=== PATIENT | male | born 1960 | race Caucasian/White ===

== ENCOUNTER 2024-06-09 11:35 | Emergency (ER) | payer OTHER ==
[2024-06-09] MEDS ORDERED: NA CHLORIDE 0.9% 500 ML ONE ×2 (12:02→16:08)
[2024-06-09 12:04] LABS: Absolute Neutrophil 5.6 K/uL (1.8-8.0); Basophils % 0.3 % (0-1.3); Eosinophils % 0.1 % (0-4.4); Hematocrit 53.2 % (39.6-49.0); Lymphocytes % 31.2 % (15.3-44.8); MCHC 33.9 g/dL (32.0-36.0); MCV 88.4 fL (80-100); MPV 7.8 fL (7.6-11.3); Monocytes % 10.2 % (3.3-12.3); Neutrophils % 58.2 % (41.7-73.7); Nucleated Red Blood Cells % 0.1 % (0-0); Platelets 209 thou/uL (152-406); RBC Red Blood Cell Count 6.02 M/uL (4.33-5.43); Red Cell Distribution Width 14.5 % (12.1-15.2)
[2024-06-09 12:07] LABS: PTT, Activated Partial Thromb 28.4 SECONDS (24.3-36.9); Protime INR 0.89
[2024-06-09 12:28] LABS: ALT/SGPT 113 U/L (16-61); AST/SGOT 87 U/L (15-37); Alkaline Phosphatase 50 U/L (45-117); Anion Gap 19.7 mEq/L (5.0-15.0); BUN Blood Urea Nitrogen 58 mg/dL (7-18); Bicarbonate 26 mEq/L (21-32); Bilirubin Direct 0.3 mg/dL (0-0.2); Bilirubin Indirect, Calculated 0.7 mg/dL (0.2-0.8); Globulin 3.9 g/dL (2.3-3.5); Glomerular Filtration Rate 36 ml/min (=/>90); Glucose Level 135 mg/dL (74-106); Potassium 2.7 mEq/L (3.5-5.1); Protein, Total 7.9 g/dL (6.4-8.2); Sodium Level 129 mEq/L (136-145)
[2024-06-09] MEDS ORDERED: KCL 20 MEQ/100 mL IVPB 100 ML IV ONE (13:35)
[2024-06-09] MEDS ORDERED: NA CHLORIDE 0.9% 1,000 ML ONE (13:36)
[2024-06-09 13:42] LABS: Barbiturates NEGATIVE (NEGATIVE); Benzodiazepines NEGATIVE (NEGATIVE); Cocaine NEGATIVE (NEGATIVE); METHAMPHETAM NEGATIVE (NEGATIVE); Methadone NEGATIVE (NEGATIVE); Opiates NEGATIVE (NEGATIVE); Phencyclidine NEGATIVE (NEGATIVE); THC Cannibis NEGATIVE (NEGATIVE)
[2024-06-09 15:55] LABS: Anion Gap 16.2 mEq/L (5.0-15.0); Potassium 3.2 mEq/L (3.5-5.1)
[2024-06-09] MEDS ORDERED: POTASSIUM CL SA 10 MEQ TAB PO ONE (16:08)
--- NOTE | 2024-06-09 16:37 | EDPHYS ---
Physician Documentation [facility] Name: Chadwick Fan Age: 63 yrs Sex: Male : 1960 Arrival Date: 06/09/2024 Time: 11:35 Bed 16 Private MD: ED Physician Jonel Kyle HPI: 06/09 13:03 This 63 yrs old Male presents to ER via EMS with complaints of Suicidal Ideation. rn 13:03 The patient presents to the emergency department with suicide ideation. Onset: The rn symptoms/episode began/occurred 3 day(s) ago. Associated signs and symptoms: Pertinent positives; anxiety, depression, Pertinent negatives: fever, hallucinations, homicidal ideation. Severity of symptoms: At their worst the symptoms were moderate in the emergency department the symptoms are unchanged. The patient has not experienced similar symptoms in the past. Patient reports suicidal ideations since a few days ago. Has been drinking heavily since onset of suicidal ideations to self medicate. Denies attempt or overdose. Has never had a previous attempt to harm himself. Reports drinking heavily today as well. No homicidal ideations. No specific plan.. Historical: - Allergies: 11:41 No Known Allergies; cm10 - PMHx: 11:41 Hypertensive disorder; Depressive disorder; Anxiety; cm10 - Immunization history:: Adult Immunizations up to date. - Infectious Disease History:: Denies. - Family history:: not pertinent. - Social history:: Smoking status: Patient denies any tobacco usage or history of. - Hospitalizations: : No recent hospitalization is reported. ROS: 13:03 Constitutional: Negative for fever, chills, and weight loss, Cardiovascular: Negative rn for chest pain, palpitations, and edema, Respiratory: Negative for shortness of breath, cough, wheezing, and pleuritic chest pain, Abdomen/GI: Negative for abdominal pain, nausea, vomiting, diarrhea, and constipation, MS/Extremity: Negative for injury and deformity, Skin: Negative for injury, rash, and discoloration, Neuro: Negative for headache, weakness, numbness, tingling, and seizure, Psych: Positive for depression/anxiety/suicidal ideation Exam: 13:03 Constitutional: This is a well developed, well nourished patient who is awake, alert, rn disheveled, emotional and tearful Head/Face: Normocephalic, atraumatic. Cardiovascular: Regular rate and rhythm. No pulse deficits. Respiratory: Mild hyperventilation as he cries Neuro: Awake and alert, GCS 15 13:14 ECG was reviewed by the Attending Physician. rn Vital Signs: 11:56 BP 106 / 80; Pulse 85; Resp 17; Temp 97.6(TE); Pulse Ox 98% on R/A; bc6 14:22 BP 110 / 76; Pulse 83; Resp 18; Pulse Ox 100% on R/A; mb9 21:23 BP 114 / 68; Pulse 160; Pulse Ox 99% ; br2 06/10 04:45 BP 140 / 78; Pulse 97; Resp 18; Pulse Ox 97% on R/A; lg3 MDM: 06/09 11:36 Patient medically screened. rn 16:32 Differential diagnosis: depression, suicidal ideation. Data reviewed: vital signs, rn nurses notes, lab test result(s), and as a result, I will admit patient. Consideration of Admission/Observation Patient was admitted/placed on observation. Escalation of care including admission/observation considered. Counseling: I had a detailed discussion with the patient and/or guardian regarding the historical points, exam findings, and any diagnostic results supporting the discharge/admit diagnosis, lab results, the need for outpatient follow up, to return to the emergency department if symptoms worsen or persist or if there are any questions or concerns that arise at home. Response to treatment: the patient's symptoms have mildly improved after treatment, and as a result, I will admit patient. 16:32 ED course: Labs improved with IV hydration. Likely acidotic due to alcoholic binge. rn Normal vital signs. Patient is voluntary and agrees for transfer to psychiatric facility given his suicidal ideations.. 06/10 04:31 ED course: Patient reports he is no longer suicidal. He is stable for discharge home. sp4 Patient was Strongly advised to abstain from alcohol and join alcoholic Anonymous club. . 06/09 11:36 Order name: Acetaminophen; Complete Time: 13:28 rn 06/09 11:36 Order name: Basic Metabolic Panel; Complete Time: 13:28 rn 06/09 11:36 Order name: CBC with Diff; Complete Time: 13:28 rn 06/09 11:36 Order name: ETOH Level; Complete Time: 13:28 rn 06/09 11:36 Order name: Hepatic Function; Complete Time: 13:28 rn 06/09 11:36 Order name: PT-INR; Complete Time: 13:28 rn 06/09 11:36 Order name: Ptt, Activated; Complete Time: 13:28 rn 06/09 11:36 Order name: Salicylate; Complete Time: 13:28 rn 06/09 11:36 Order name: Urine Drug Screen; Complete Time: 13:46 rn 06/09 14:57 Order name: BMP: repeat when fluid boluses complete; Complete Time: 15:58 rn 06/09 18:04 Order name: ETOH Level; Complete Time: 18:54 bd 06/10 02:25 Order name: Alcohol Level; Complete Time: 04:24 sp4 06/10 02:25 Order name: CMP; Complete Time: 04:24 sp4 06/09 11:36 Order name: EKG; Complete Time: 11:37 rn 06/09 11:36 Order name: EKG - Nurse/Tech; Complete Time: 12:07 rn 06/09 11:36 Order name: IV Saline Lock; Complete Time: 12:07 rn 06/09 11:36 Order name: Labs collected and sent; Complete Time: 12:07 rn 06/09 11:36 Order name: Suicide Precautions; Complete Time: 12:07 rn 06/09 11:36 Order name: Suicide Screening ([place]); Complete Time: 12:22 rn EC/09 13:14 Rhythm is regular. Left axis deviation noted. QRS is positive in lead I and negative in rn lead aVF. QRS interval is normal. QT interval is normal. No Q waves. T waves are Normal. No ST changes noted. Clinical impression: NSR w/ Non-specific ST/T Changes. Interpreted by me. Reviewed by me. Administered Medications: 12:22 Drug: NS 0.9% IV 500 ml IV at bolus once Route: IV; Rate: bolus; Site: left antecubital;mb9 12:45 Follow up: Response: No adverse reaction; IV Status: Completed infusion mb9 13:43 Drug: NS 0.9% IV 1000 ml IV at 1000 ml once Route: IV; Rate: 1000 ml; Site: left mb9 antecubital; 15:44 Follow up: Response: No adverse reaction; IV Status: Completed infusion mb9 13:43 Drug: Potassium Chloride IV 20 mEq IV at calculated rate once; administer over 1-2 mb9 hours Route: IV; Rate: calculated rate; Site: left antecubital; 15:43 Follow up: Response: No adverse reaction; IV Status: Completed infusion mb9 16:15 Drug: Potassium Chloride PO 40 mEq PO once Route: PO; mb9 17:11 Follow up: Response: No adverse reaction mb9 16:15 Drug: NS 0.9% IV 500 ml IV at bolus once Route: IV; Rate: bolus; Site: left antecubital;mb9 17:11 Follow up: Response: No adverse reaction; IV Status: Completed infusion mb9 16:30 Drug: Calcium Carbonate PO 500 mg PO once; administer after food or a meal Route: PO; ll1 17:11 Follow up: Response: No adverse reaction mb9 19:42 CANCELLED (Physician Discretion): diazepam5 mg PO once ec2 19:54 Drug: Diazepam IVP 5 mg IVP once Route: IVP; Site: left antecubital; br2 21:00 Follow up: Response: No adverse reaction; RASS: Restless (+1) br2 21:58 Drug: LORazepam PO 2 mg PO once Route: PO; br2 23:00 Follow up: Response: No adverse reaction; Anxiety decreased br2 21:58 Drug: Thiamine IV 100 mg IV at bolus once Route: IV; Rate: bolus; Site: left br2 antecubital; 06/10 05:04 Follow up: Response: No adverse reaction; IV Status: Completed infusion; IV Intake: 1ml br2 06/09 21:58 Drug: D5-NS IV 1000 ml IV at 125 ml/hr continuous Route: IV; Rate: 125 ml/hr; Site: br2 left antecubital; 06/10 05:21 Follow up: IV Status: Order to discontinue infusion; IV Intake: 700ml br2 05:02 Drug: LORazepam PO 1 mg PO once Route: PO; br2 05:21 Follow up: Response: No adverse reaction br2 Disposition Summary: 06/10/24 04:35 Discharge Ordered Notes: Location: Home sp4 Problem: new(06/10/24 04:35) sp4 Symptoms: have improved(06/10/24 04:35) sp4 Condition: Stable(06/10/24 04:35) sp4 Diagnosis - Alcohol abuse with intoxication sp4 - Acute alcoholic hepatitis, acute hyponatremia- resolved sp4 Followup: sp4 - With: Savage Aj MD - When: 7 - 10 days - Reason: Recheck today's complaints Discharge Instructions: - Discharge Summary Sheet sp4 - Alcohol Intoxication sp4 Forms: - Patient Portal Instructions sp4 Prescriptions: - chlordiazepoxide HCl 25 mg Oral capsule - take 1 capsule ORAL route 2 times per day Take One tab twice daily for 5 days sp4 then One tab once daily for 5 days; 15 capsule; Refills: 0, Product Selection Permitted Signatures: Dispatcher [employer] EDMS Martin Montes MD MD rn Lewis, Lynsay RN RN ll1 Sarah, Shahla Tapia, RN RN mb9 Jonel Kyle MD MD sp4 Marguerite Pizano RN RN cm10 Jose Alexander MD MD ec2 Dora Anglin, RN RN br2 Corrections: (The following items were deleted from the chart) 06/09 19:42 19:40 Diazepam PO 5 mg PO once ordered. ec2 ec2 06/10 04:32 06/09 16:37 DrCarrington rn sp4 06/10 04:32 06/09 16:37 Psych Facility rn sp4 06/10 04:32 06/09 16:37 Higher level of care rn sp4 06/10 04:06/09 16:37 Stable rn sp4 06/10 04:32 06/09 16:37 new rn sp4 06/10 04:32 06/09 16:37 have improved rn sp4 06/10 04:32 06/09 16:37 Suicidal ideations rn sp4 06/10 04:32 06/09 16:37 Alcohol use, unspecified with intoxication, uncomplicated rn sp4 06/10 04:32 06/09 16:37 Dehydration rn sp4
--- NOTE | 2024-06-09 16:37 | ER ---
Nurse's Notes [facility] Name: Chadwick Fan Age: 63 yrs Sex: Male : 1960 Arrival Date: 06/09/2024 Time: 11:35 Bed 16 Private MD: Diagnosis: Alcohol abuse with intoxication;Acute alcoholic hepatitis, acute hyponatremia- resolved Presentation: 06/09 11:39 Chief complaint: EMS states: Called to patient's home due to patient drinking alcohol cm10 and having suicidal ideation since Friday. Pt has been drinking alcohol since 07. Pt reports passing out. Pt very emotional due to not having family here. Pt does not have a plan. Pt has history of depression but has not been taking his medication as prescribed. Coronavirus screen: Client denies travel out of the [place] in the last 14 days. Ebola Screen: Patient denies travel to an Ebola-affected area in the 21 days before illness onset. Initial Sepsis Screen: Does the patient meet any 2 criteria? HR > 90 bpm. Does the patient have a suspected source of infection? No. Patient's initial sepsis screen is negative. Risk Assessment: Do you want to hurt yourself or someone else? Patient reports desire/thoughts of hurting themselves or someone else. Provider notified. 11:39 Method Of Arrival: EMS: [facility] cm10 11:39 Acuity: SUPA 2 cm10 12:20 Onset of symptoms was 2023. mb9 Historical: - Allergies: 11:41 No Known Allergies; cm10 - PMHx: 11:41 Hypertensive disorder; Depressive disorder; Anxiety; cm10 - Immunization history:: Adult Immunizations up to date. - Infectious Disease History:: Denies. - Family history:: not pertinent. - Social history:: Smoking status: Patient denies any tobacco usage or history of. - Hospitalizations: : No recent hospitalization is reported. Screenin:20 [facility] ED Fall Risk Assessment (Adult) History of falling in the last 3 months, mb9 including since admission No falls in past 3 months (0 pts) Confusion or Disorientation No (0 pts) Intoxicated or Sedated No (0 pts) Impaired Gait No (0 pts) Mobility Assist Device Used No (0 pt) Altered Elimination No (0 pt) Score/Fall Risk Level 0 - 2 = Low Risk. [facility] ED Fall Risk Assessment (Adult) Score/Fall Risk Level 0 - 2 = Low Risk Oriented to surroundings, Maintained a safe environment, Educated pt \\T\\ family on fall prevention, incl call for assistance when getting out of bed, Assessed \\T\\ reinforced patient's understanding of fall precautions, Provided non-skid footwear, Hourly rounding (assess needs \\T\\ fall precautionary measures) done. Abuse screen: Denies threats or abuse. Nutritional screening: No deficits noted. Tuberculosis screening: No symptoms or risk factors identified. Assessment: 11:35 General: Appears uncomfortable, Behavior is anxious, crying. Pain: Denies pain. Neuro: mb9 Level of Consciousness is awake, alert, obeys commands, Oriented to person, place, time, situation, Appropriate for age. Respiratory: Airway is patent Respiratory effort is even, unlabored, Respiratory pattern is regular, symmetrical, Breath sounds are clear bilaterally. 11:35 Cardiovascular: Patient's skin is warm and dry. GI: Abdomen is round non-distended. : mb9 No signs and/or symptoms were reported regarding the genitourinary system. EENT: No signs and/or symptoms were reported regarding the EENT system. Derm: Skin is pink, warm \\T\\ dry. Musculoskeletal: Range of motion: intact in all extremities. 12:35 Reassessment: Patient is alert, oriented x 3, equal unlabored respirations, skin mb9 warm/dry/pink. SI precautions in place. Sitter at bedside. 13:35 Reassessment: Patient is alert, oriented x 3, equal unlabored respirations, skin mb9 warm/dry/pink. SI precautions in place. Sitter and friend at bedside. 14:35 Reassessment: Patient appears in no apparent distress at this time. Patient is alert, mb9 oriented x 3, equal unlabored respirations, skin warm/dry/pink. SI precautions in place. Sitter at bedside. 15:35 Reassessment: Patient is alert, oriented x 3, equal unlabored respirations, skin mb9 warm/dry/pink. SI precautions in place. Sitter at bedside. 16:35 Reassessment: Patient is alert, oriented x 3, equal unlabored respirations, skin mb9 warm/dry/pink. SI precautions in place. Sitter at bedside. 17:35 Reassessment: Patient appears in no apparent distress at this time. Patient and/or mb9 family updated on plan of care and expected duration. Pain level reassessed. Patient is alert, oriented x 3, equal unlabored respirations, skin warm/dry/pink. Si precautions in place. Sitter at bedside. 18:35 Reassessment: Patient and/or family updated on plan of care and expected duration. Pain mb9 level reassessed. Patient is alert, oriented x 3, equal unlabored respirations, skin warm/dry/pink. SI precautions in place. SItter at bedside. 19:05 Reassessment: Patient and/or family updated on plan of care and expected duration. Pain br2 level reassessed. Patient is alert, oriented x 3, equal unlabored respirations, skin warm/dry/pink. PT UPDATED ON PLAN OF CARE. PT STATES HE IS FEELING "SHAKY" AND HASN'T BEEN ABLE TO SLEEP. STATES HE HAS BEEN FEELING DEPRESSED DUE TO LOOSING HIS MOTHER RECENTLY AND HER BIRTHDAY WAS THIS PAST FRIDAY. PT STATES HE JUST WANTS HELP WITH HIS DEPRESSION, DIDN'T REALLY WANT TO COMMIT SUICIDE. 21:23 Reassessment: Reassessment: PT STATES HE IS FEELING "SHAKY" AND ISN'T ABLE TO REST. DR solo PT IN PROCEDURE, NOTIFIED CHARGE NURSE PRINCE. 21:58 Reassessment: No changes from previously documented assessment. Patient and/or family br2 updated on plan of care and expected duration. Pain level reassessed. Patient is alert, oriented x 3, equal unlabored respirations, skin warm/dry/pink. 23:00 Reassessment: Patient and/or family updated on plan of care and expected duration. Pain br2 level reassessed. Patient is alert, oriented x 3, equal unlabored respirations, skin warm/dry/pink. Patient states symptoms have improved. resting in bed with eyes closed. 06/10 01:00 Reassessment: No changes from previously documented assessment. Patient and/or family br2 updated on plan of care and expected duration. Pain level reassessed. Patient is alert, oriented x 3, equal unlabored respirations, skin warm/dry/pink. resting with eyes closed. no signs of distress Patient states symptoms have improved. 03:00 Reassessment: No changes from previously documented assessment. Patient and/or family br2 updated on plan of care and expected duration. Pain level reassessed. Patient is alert, oriented x 3, equal unlabored respirations, skin warm/dry/pink. 05:26 Reassessment: PT WAITING FOR SOMEONE TO PICK HIM UP. br2 Psych: 06/09 19:00 [place] Suicide Severity Screening: In the past month, have you wished you were br2 or wished you could go to sleep and not wake up? Patient responds "No." "In the past month, have you actually had any thoughts of killing yourself?" Patient responds "no." "In your lifetime, have you ever done anything, started to do anything, or prepared to do anything to end your life?" Patient responds "no.". Subjective: Patient's mood is sad, Delusions are denied, Hallucinations are denied Having thoughts of. Objective: Patient is restless, Speech is normal. Interventions: Patient placed in hospital gown. Patient reassessed during use of restraints. Patient is physically safe. Safety Checks: Personal items have been removed. Door is open. No visitors are present at this time. Patient uses 1 bottle of liquor, daily. Last use was 1 days ago. Commitment: Patient will be a voluntary commitment. 06/10 05:00 [place] Suicide Severity Screening: In the past month, have you wished you were br2 or wished you could go to sleep and not wake up? Patient responds "No." "In the past month, have you actually had any thoughts of killing yourself?" Patient responds "no." "In your lifetime, have you ever done anything, started to do anything, or prepared to do anything to end your life?" Patient responds "no.". Subjective: Patient's mood is sad, Delusions are denied, Hallucinations are denied Having thoughts of. Objective: Patient is cooperative, Speech is normal, Affect is appropriate. Safety Checks: Door is open. Patient uses. Consultation: OUT PATIENT RESOURCES PROVIDED. Commitment: PATIENT WAITING FOR RIDE, FEELING MUCH BETTER. Vital Signs: 06/09 11:56 BP 106 / 80; Pulse 85; Resp 17; Temp 97.6(TE); Pulse Ox 98% on R/A; bc6 14:22 BP 110 / 76; Pulse 83; Resp 18; Pulse Ox 100% on R/A; mb9 21:23 BP 114 / 68; Pulse 160; Pulse Ox 99% ; br2 06/10 04:45 BP 140 / 78; Pulse 97; Resp 18; Pulse Ox 97% on R/A; lg3 ED Course: 06/09 11:36 Patient arrived in ED. rn 11:36 Martin Montes MD is Attending Physician. rn 11:41 Triage completed. cm10 11:41 Arm band placed on Patient placed in an exam room, on a stretcher. cm10 11:42 Patient has correct armband on for positive identification. Bed in low position. Call cm10 light in reach. 11:43 Safety Checks: Personal items have been removed. The door is open or patient has been cm10 placed in a hallway bed/chair. A family member and/or friend is present and encouraged to stay. Sitter present at this time. 11:50 Shahla Smith RN is Primary Nurse. mb9 11:55 Acetaminophen Sent. bc6 11:55 Basic Metabolic Panel Sent. bc6 11:55 CBC with Diff Sent. bc6 11:55 ETOH Level Sent. bc6 11:55 Hepatic Function Sent. bc6 11:55 PT-INR Sent. bc6 11:55 Ptt, Activated Sent. bc6 11:55 Salicylate Sent. bc6 11:55 Initial lab(s) drawn, by nd, sent to lab. Inserted saline lock: 20 gauge in left bc6 antecubital area, using aseptic technique. Blood collected. Flushed with 10 mL NS. 12:18 EKG done, by ED staff, reviewed by Martin Montes MD. mb9 12:20 No provider procedures requiring assistance completed. mb9 15:44 BMP: repeat when fluid boluses complete Sent. mb9 18:58 faxed chart to [facility]. bd 19:05 Report given to GOMEZ Malin. mb9 19:05 Report received from NICOLE. br2 21:43 Attending Physician role handed off by Martin Montes MD sp4 21:43 Jonel Kyle MD is Attending Physician. sp4 21:57 Diet: Soda Drink given. oe 06/10 04:33 Savage Aj MD is Referral Physician. sp4 04:36 gave pt numbers for mental health and crisis line. kmf 05:00 Provided Education on: Provided Education on: OUTPATIENT TREATMENT FACILITIES. br2 05:00 IV discontinued, intact, bleeding controlled, No redness/swelling at site. Pressure br2 dressing applied. Administered Medications: 06/09 12:22 Drug: NS 0.9% IV 500 ml IV at bolus once Route: IV; Rate: bolus; Site: left antecubital;mb9 12:45 Follow up: Response: No adverse reaction; IV Status: Completed infusion mb9 13:43 Drug: NS 0.9% IV 1000 ml IV at 1000 ml once Route: IV; Rate: 1000 ml; Site: left mb9 antecubital; 15:44 Follow up: Response: No adverse reaction; IV Status: Completed infusion mb9 13:43 Drug: Potassium Chloride IV 20 mEq IV at calculated rate once; administer over 1-2 mb9 hours Route: IV; Rate: calculated rate; Site: left antecubital; 15:43 Follow up: Response: No adverse reaction; IV Status: Completed infusion mb9 16:15 Drug: Potassium Chloride PO 40 mEq PO once Route: PO; mb9 17:11 Follow up: Response: No adverse reaction mb9 16:15 Drug: NS 0.9% IV 500 ml IV at bolus once Route: IV; Rate: bolus; Site: left antecubital;mb9 17:11 Follow up: Response: No adverse reaction; IV Status: Completed infusion mb9 16:30 Drug: Calcium Carbonate PO 500 mg PO once; administer after food or a meal Route: PO; ll1 17:11 Follow up: Response: No adverse reaction mb9 19:42 CANCELLED (Physician Discretion): diazepam5 mg PO once ec2 19:54 Drug: Diazepam IVP 5 mg IVP once Route: IVP; Site: left antecubital; br2 21:00 Follow up: Response: No adverse reaction; RASS: Restless (+1) br2 21:58 Drug: LORazepam PO 2 mg PO once Route: PO; br2 23:00 Follow up: Response: No adverse reaction; Anxiety decreased br2 21:58 Drug: Thiamine IV 100 mg IV at bolus once Route: IV; Rate: bolus; Site: left br2 antecubital; 06/10 05:04 Follow up: Response: No adverse reaction; IV Status: Completed infusion; IV Intake: 1ml br2 06/09 21:58 Drug: D5-NS IV 1000 ml IV at 125 ml/hr continuous Route: IV; Rate: 125 ml/hr; Site: br2 left antecubital; 06/10 05:21 Follow up: IV Status: Order to discontinue infusion; IV Intake: 700ml br2 05:02 Drug: LORazepam PO 1 mg PO once Route: PO; br2 05:21 Follow up: Response: No adverse reaction br2 Medication: 06/09 12:20 VIS not applicable for this client. mb9 Intake: 06/10 05:04 IV: 1ml; Total: 1ml. br2 05:21 IV: 700ml; Total: 701ml. br2 Outcome: 06/09 16:37 ER care complete, transfer ordered by . rn 06/10 04:35 Discharge ordered by . sp4 05:00 Discharged to home ambulatory, br2 05:00 Condition: improved 05:00 Discharge instructions given to patient, Instructed on discharge instructions, follow up and referral plans. Demonstrated understanding of instructions, follow-up care, 05:00 Patient left the ED. br2 Signatures: Helen Sosa Roman, MD MD rn Espinosa, Orlando oe Able, Lacie RN RN lg3 Maddison Mistry RN RN ll1 Shahla Smith RN RN mb9 Suad Robins6 Jonel Kyle MD MD sp4 Marguerite Pizano RN RN cm10 Elena Arroyo [facility] Dora Anglin RN RN br2 Jose Alexander MD ec2 Corrections: (The following items were deleted from the chart) 05:26 05:25 Patient left the ED. br2 br2 05:31 04:58 BP 140 / 78; Pulse 97bpm; Resp 18bpm; Pulse Ox 97% RA; oe lg3 05:32 05:20 BP 140 / 78; Pulse 97bpm; Resp 18bpm; Pulse Ox 97% RA; lg3 lg3
[2024-06-09] MEDS ORDERED: CALCIUM CARBONATE 500 MG TAB PO ONE (17:00)
[2024-06-09] MEDS ORDERED: DIAZEPAM 10 MG/2 ML INJ SYRINGE ONE (19:45)
[2024-06-09] MEDS ORDERED: THIAMINE 200 MG/2 ML INJ ONE (21:46)
[2024-06-09] MEDS ORDERED: D5W 1,000 ML IV ONE (21:47)
[2024-06-09] MEDS ORDERED: LORAZEPAM 1 MG TABLET ONE (21:47)
[2024-06-10 03:07] LABS: Albumin 3.3 g/dL (3.4-5.0); Albumin/Globulin Ratio 0.9 (1.1-1.8); Anion Gap 10.5 mEq/L (5.0-15.0); Bilirubin Total 0.5 mg/dL (0.2-1.0); Globulin 3.6 g/dL (2.3-3.5); Potassium 3.5 mEq/L (3.5-5.1); Protein, Total 6.9 g/dL (6.4-8.2)
[2024-06-10] MEDS ORDERED: LORAZEPAM 1 MG TABLET ONE (04:51)
[2024-06-10 05:38] VITALS: TEMP 97.6
[2024-06-10 05:45] VITALS: BP 140/78; O2SAT 97
--- NOTE | 2024-06-10 16:54 | EKG ---
Test Date: 2024-06-09 Test Time: 12:12:29 Psychological Assistant: MB MEASUREMENT RESULTS: Intervals: Rate: 88 ND: 190 QRSD: 108 QT: 454 QTc: 549 [place]: P: 58 ND: 190 QRS: -85 T: 77 INTERPRETIVE STATEMENTS: Normal sinus rhythm Left axis deviation Incomplete right bundle branch block Anteroseptal infarct, age undetermined Prolonged QT Abnormal ECG No previous ECG available for comparison Electronically Signed On 06-10-24 16:50:40 CDT by Reddy Bruner
== END 2024-06-10 05:25 | disposition home or self-care (01) ==
LOC: ER 11:35
DX: F10.129 Alcohol abuse with intoxication, unspecified (principal); K70.10 Alcoholic hepatitis without ascites; F32.A Depression, unspecified; I10 Essential (primary) hypertension
CPT/HCPCS: 93005; 85025; 80048 ×2; 36415; 85610; 80076; 85730; 80053; 80307; 80143; 80179; 82077 ×3; J3411; J3480; J3360; J7040 ×2; J7030